=== PATIENT | female | born 1940 | race Caucasian/White ===

== ENCOUNTER 2022-10-12 07:06 | Emergency (ER) | payer MEDICARE ==
[~2022-10-12] VITALS: Ht 167.6 cm; Wt 74.8 kg
[2022-10-12 07:11] VITALS: BP 163/76
[2022-10-12] MEDS ORDERED: CYCLOBENZAPRINE 10 MG TAB PO ONE (07:40)
[2022-10-12] MEDS ORDERED: LIDOCAINE 5% 1 EA PATCH TP SCH (07:40)
[2022-10-12] MEDS ORDERED: NACL 0.9% 1,000 ML IV ONE (07:40)
[2022-10-12] MEDS ORDERED: ACETAMINOPHEN EXTRA STRENGTH 500 MG TAB PO ONE (07:50)
[2022-10-12 08:15] LABS: BASOPHILS % (AUTO) 0.9 % (0.0-2.0); EOSINOPHILS # (AUTO) 0.2 K/uL (0-0.4); EOSINOPHILS % (AUTO) 3.5 % (0.0-4.0); HEMATOCRIT 29.9 % (36-48); HEMOGLOBIN 10.3 g/dL (12.0-16.0); LYMPHOCYTES # (AUTO) 1.5 K/uL (2.5-16.5); LYMPHOCYTES % (AUTO) 26.4 % (20.5-51.1); MEAN CORPUSCULAR HEMOGLOBIN 34 pg (27-31); MEAN CORPUSCULAR HGB CONC 34 g/dL (33-37); MEAN CORPUSCULAR VOLUME 98.2 fL (80-94); MONOCYTES # (AUTO) 0.4 K/uL (0.8-1.0); MONOCYTES % (AUTO) 6.4 % (1.7-9.3); NEUTROPHILS # (AUTO) 3.5 K/uL (1.8-7.7); NEUTROPHILS % (AUTO) 62.8 % (42.2-75.2); PLATELET COUNT (AUTO) 314 K/uL (140-450); RED BLOOD CELL COUNT(AUTO) 3.04 MIL/uL (4.20-5.40); RED CELL DISTRIBUTION WIDTH 14.3 % (11.6-13.7); WHITE BLOOD COUNT (AUTO) 5.5 K/uL (4.8-10.8)
[2022-10-12 08:27] LABS: BILIRUBIN,URINE NEGATIVE (NEGATIVE); BLOOD, URINE NEGATIVE (NEGATIVE); COLOR,URINE YELLOW (YELLOW); LEUKOCYTE ESTERASE ,URINE 1+ (NEGATIVE); NITRITE, URINE NEGATIVE (NEGATIVE); PH,URINE 6.5 (5.0-9.0); UGLUCOSE NEGATIVE (NEGATIVE)
--- NOTE | 2022-10-12 08:31 | NUR ---
resting in bed, "feels like stiff neck turning to the left side" declined c radha, aware
[2022-10-12 08:43] LABS: APPEARANCE,URINE HAZY (CLEAR)
[2022-10-12] MEDS ORDERED: CYCLOBENZAPRINE 10 MG TAB ONE (08:43)
[2022-10-12 08:45] LABS: CALCIUM OXALATE CRYSTALS,UR None Seen /HPF (None Seen); COARSE GRANULAR CASTS,URINE None Seen /LPF (None Seen); FINE GRANULAR CASTS,URINE None Seen /LPF (None Seen); HYALINE CASTS, URINE None Seen /LPF (None Seen); OTHER CRYSTALS,URINE None Seen /HPF (None Seen); RBC,URINE 0-5 /HPF (0-5); RED BLOOD CELL CASTS,URINE None Seen /LPF (None Seen); TRICHOMONAS,URINE None Seen /HPF (None Seen); TRIPLE PHOSPHATE CRYSTAL,UR None Seen /HPF (None Seen); URIC ACID CRYSTALS,URINE None Seen /HPF (None Seen); URINE AMORPHOUS URATE None Seen /HPF (None Seen); WAXY CASTS,URINE None Seen /LPF (None Seen); YEAST,URINE None Seen /HPF (None Seen)
[2022-10-12 08:46] LABS: ALBUMIN 3.6 g/dL (3.4-5.0); ANION GAP 11.1 (8-16); CARBON DIOXIDE 30.7 mmol/L (21-32); CHLORIDE 96 mmol/L (98-107); CREATININE 0.7 mg/dL (0.6-1.3); GLUCOSE 156 mg/dL (74-106); LIPASE 79 U/L (73-393); POTASSIUM 3.8 mmol/L (3.5-5.1); SODIUM SERUM 134 mmol/L (136-145); UREA NITROGEN, BLOOD 15 mg/dL (7-18)
[2022-10-12 08:46] LABS: OTHER CASTS, URINE None Seen /LPF (None Seen)
[2022-10-12 09:16] LABS: ASPARTATE AMINOTRANSFERASE 25 U/L (15-37); TOTAL BILIRUBIN 0.2 mg/dL (0.0-1.0)
[2022-10-12] MEDS ORDERED: cephALEXin 500 MG CAP PO ONE (09:35)
[2022-10-12] MEDS ORDERED: cephALEXin 500 MG CAP ONE (10:38)
--- NOTE | 2022-10-12 12:23 | NUR ---
ambulates with unsteady gait to br to void urine
--- NOTE | 2022-10-12 12:29 | NUR ---
on tele neuro at this time. pt very conversant with neurologist
[2022-10-12] MEDS: MECLIZINE 25 MG TAB PO ONE ×2 (13:55→14:39)
--- NOTE | 2022-10-12 15:00 | NUR ---
REFUSED ANTIVERT, "I FEEL BETTER NOW"
--- NOTE | 2022-10-12 15:33 | NUR ---
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
[2022-10-12 16:16] VITALS: BP 137/50
--- NOTE | 2022-10-12 16:20 | NUR ---
Patient to be transferred to [facility]. Is being transferred due to . Receiving facility has accepting physician and available space. ER physician has signed transfer form. Patient or responsible alliance party has agreed to transfer and signed form. Patient belongings inventoried and will be sent with patient. Copy of nursing notes, lab reports, EKG, Physicians Orders and X-rays to be sent with patient. Report called to at receiving facility. ambulance service has been called for transfer. PT PICKED UP BY BRUNILDA.
== END 2022-10-12 16:20 | disposition short-term general hospital (02) ==
LOC: MED 07:06
DX: M62.830 Muscle spasm of back (principal); D64.9 Anemia, unspecified; E87.8 Other disorders of electrolyte and fluid balance, not elsewhere classified; Z20.822 Contact with and (suspected) exposure to COVID-19; E11.9 Type 2 diabetes mellitus without complications; I10 Essential (primary) hypertension; C44.90 Unspecified malignant neoplasm of skin, unspecified; Z90.49 Acquired absence of other specified parts of digestive tract; Z90.710 Acquired absence of both cervix and uterus; Z98.890 Other specified postprocedural states
CPT/HCPCS: 36415; 70450; 70496; 70498; 72125; 80053; 81001; 83690; 84484; 85025; 87086; 87426; 93005; 96360; 99285; J7030; J8597; Q9967